=== PATIENT | female | born 1975 | race American Indian/Alaskan Native ===

== ENCOUNTER 2018-12-04 19:08 | Emergency (ER) | payer OTHER ==
[~2018-12-04] VITALS: Ht 154.9 cm; Wt 59.0 kg
[2018-12-04] MEDS ORDERED: METH40 PO (19:53)
[2018-12-04] MEDS ORDERED: ALBU90OI6 INH (19:54)
[2018-12-04] MEDS ORDERED: Prednisone20 MG PO (20:51)
== END 2018-12-04 21:10 | disposition home or self-care (01) ==
LOC: ER 19:08
DX: J45.901 Unspecified asthma with (acute) exacerbation (principal); Z88.8 Allergy status to other drugs, medicaments and biological substances; Z79.899 Other long term (current) drug therapy; F17.200 Nicotine dependence, unspecified, uncomplicated
CPT/HCPCS: 94640; 94760; 99283-25; J1100

== ENCOUNTER 2020-05-15 10:16 | Inpatient (IN) | payer OTHER ==
[~2020-05-15] VITALS: Ht 154.9 cm; Wt 50.7 kg
[~2020-05-15 10:16] MED LIST: ALBU90OI6 INH; CEPH500 PO; CHLO25 PO; METH40 PO; Prednisone20 MG PO
[2020-05-15 11:46] LABS: BASOPHILS ABSOLUTE AUTO 0.05 K/mm3 (0.00-0.23); BASOPHILS PERCENT AUTO 1 % (0-2); EOSINOPHILS ABSOLUTE AUTO 0.06 K/mm3 (0.00-0.68); EOSINOPHILS PERCENT AUTO 1 % (0-6); Hematocrit 33.3 % (33.0-51.0); Hemoglobin 10.6 g/dL (11.5-16.0); IMMATURE GRAN ABSOLUTE AUTO 0.03 K/mm3 (0.00-0.10); IMMATURE GRAN PERCENT AUTO 0 % (0-1); LYMPHOCYTES ABSOLUTE AUTO 1.33 K/mm3 (0.84-5.20); LYMPHOCYTES PERCENT AUTO 19 % (21-46); MONOCYTES ABSOLUTE AUTO 0.54 K/mm3 (0.16-1.47); MONOCYTES PERCENT AUTO 8 % (4-13); Mean Corpuscular HGB 32.4 pg (26.0-34.0); Mean Corpuscular HGB Conc 31.8 g/dL (31.5-36.5); Mean Corpuscular Volume 102 fL (80-100); Mean Platelet Volume 8.5 fL (9.1-12.4); NEUTROPHILS PERCENT AUTO 72 % (41-73); Platelet Count 413 K/mm3 (150-400); RDW Coefficient Variation 18.9 % (11.7-14.2); RDW Standard Deviation 67.9 fL (35.1-46.3); Red Blood Cell Count 3.27 M/mm3 (3.80-5.20); White Blood Cell Count 7.11 K/mm3 (4.00-11.30)
[2020-05-15 12:09] LABS: Albumin, Blood 2.6 g/dL (3.4-5.0); Albumin/Globulin Ratio 0.6 (0.8-1.8); Bilirubin, Total 0.2 mg/dL (0.1-1.0); Bun/Creatinine Ratio 10.3 (12.0-20.0); C-REACTIVE PROTEIN, EXT RANGE 1.28 mg/dL (0.000-0.300); Calcium, Blood 8.2 mg/dL (8.5-10.1); Creatinine, Blood 1.16 mg/dL (0.40-1.00); Globulin, Blood 4.2 g/dL (2.2-4.0); Potassium, Blood 4.2 mmol/L (3.5-5.5); Total Protein, Blood 6.8 g/dL (6.4-8.2)
[2020-05-15] MEDS ORDERED: SULTRIDS PO (13:51)
[2020-05-16 04:00] LABS: BASOPHILS ABSOLUTE AUTO 0.02 K/mm3 (0.00-0.23); BASOPHILS PERCENT AUTO 0 % (0-2); EOSINOPHILS ABSOLUTE AUTO 0.08 K/mm3 (0.00-0.68); EOSINOPHILS PERCENT AUTO 2 % (0-6); Hematocrit 29.3 % (33.0-51.0); Hemoglobin 9.3 g/dL (11.5-16.0); IMMATURE GRAN ABSOLUTE AUTO 0.02 K/mm3 (0.00-0.10); IMMATURE GRAN PERCENT AUTO 0 % (0-1); LYMPHOCYTES ABSOLUTE AUTO 1.08 K/mm3 (0.84-5.20); LYMPHOCYTES PERCENT AUTO 22 % (21-46); MONOCYTES ABSOLUTE AUTO 0.38 K/mm3 (0.16-1.47); MONOCYTES PERCENT AUTO 8 % (4-13); Mean Corpuscular HGB Conc 31.7 g/dL (31.5-36.5); Mean Corpuscular Volume 101 fL (80-100); Mean Platelet Volume 8.7 fL (9.1-12.4); NEUTROPHILS ABSOLUTE AUTO 3.29 K/mm3 (1.96-9.15); NEUTROPHILS PERCENT AUTO 68 % (41-73); Platelet Count 345 K/mm3 (150-400); RDW Coefficient Variation 18.6 % (11.7-14.2); RDW Standard Deviation 67.2 fL (35.1-46.3); Red Blood Cell Count 2.91 M/mm3 (3.80-5.20); White Blood Cell Count 4.87 K/mm3 (4.00-11.30)
[2020-05-16 04:20] LABS: Anion Gap 1 mmol/L (6-16); Blood Urea Nitrogen 14 mg/dL (8-24); Bun/Creatinine Ratio 13.3 (12.0-20.0); CO2, Blood 28 mmol/L (21-32); Calcium, Blood 7.6 mg/dL (8.5-10.1); Chloride, Blood 112 mmol/L (98-108); Creatinine, Blood 1.05 mg/dL (0.40-1.00); Glomerular Filtration Rate >60 (60-); Glucose, Blood 89 mg/dL (70-99); Potassium, Blood 4.7 mmol/L (3.5-5.5); Sodium, Blood 141 mmol/L (136-145)
--- NOTE | 2020-05-16 04:51 | NUR ---
PATIENT TRANSFERRED FROM THE ED. ALERT AND ORIENTED X 4. LEG WOUND BANDAGED. DRESING IS DRY AND INTACT. PATIENT IS WILLING TO USE NICOTINE AN ALTERNATIVE TO GOING OUTSIDE AND SMOKING A CIGARETTE. SHE IS NEEDING SEVERAL DOSES OF FENTANYL TO ALLEVIATE PAIN. KEPT NPO FOR CONSIDERATION OF SURGERY TOMORROW. FLUIDS RUNNING PER PROVIDER ORDER. CALL LIGHT WITHIN REACH, WILL MONITOR UNTIL END OF SHIFT
--- NOTE | 2020-05-16 10:09 | NUR ---
PT AGITATED, STATES SHE IS UPSET AT HAVING TO WAIT SO LONG FOR THE DOCTOR THIS MORNING. sTATES FENTANYL DOESN'T WORK FOR HER; STATES THAT IT MADE HER VOMIT THIS MORNING. STATES THAT DILAUDID IS WHAT WORKS FOR HER. REFUSED NICOTINE PATCH, STATES THAT IT DOESN'T WORK. AGITATED BECAUSE SHE CANNOT GO OUTSIDE TO SMOKE, EITHER.
--- NOTE | 2020-05-16 10:21 | NUR ---
Spoke with Dr. Akins to confirm receipt of consultation request. States that he is on his way to the hospital and will see the pt soon. Also attempted to reach Dr. Trujillo by phone, but there was no answer. Now Dr. Trujillo is in the unit, and rounding on her patients. Will address pt's concerns and request for different pain medication when the doctor rounds in PCU 1
--- NOTE | 2020-05-16 10:31 | NUR ---
Dr. Trujillo states she will change the pain medication from fentanyl to dilaudid. the pt remains agitated. She attempted OOB independently, agitated and pulling on her IV pole, which nearly knocked the IV pole over, and nearly also dislodged her IV. the PCT was just outside the room and requested that the pt call on her call light in order to prevent accidents/mishaps if she is needing help for activity. The pt is pulling on her IV, still agitated.
--- NOTE | 2020-05-16 10:41 | NUR ---
Dr. Akins and his information assistant are here to see the patient at this time.
--- NOTE | 2020-05-16 12:16 | NUR ---
pt is apologetic for previous agitation and demanding behaviours. She has received pain medication and is feeling much more comfortable. She is pleasantly conversant, tolerating clear liquids at this time.
--- NOTE | 2020-05-16 14:45 | NUR ---
PT STATES THAT FENTANYL CAUSES HER NAUSEA, AND DOESN'T WORK FOR PAIN RELIEF.
--- NOTE | 2020-05-16 15:49 | NUR ---
surgery has been delayed until around 5 pm. The pt appears to be comfortable, she is lying in bed, talking on the phone. She asked if someone could pray with her, and we accomodated her request; she expressed thanks for this immediately afterwards.
--- NOTE | 2020-05-16 16:25 | NUR ---
PT APPEARS AGITATED AGAIN. I explained that the surgery should be around 5 pm, as the surgeon is still in a very long case this afternoon. She is sullen and does not answer me. AFter I left the room, the PCT alerted me that the patient is c/o of pain. She is medicated for pain as ordered at this time.
--- NOTE | 2020-05-16 17:03 | NUR ---
the pt has a visitor at the bedside, an adult male, who is on his phone and does not look up while I am in the room. The day surgery RN Javi is here at this time to take the patient for surgery.
--- NOTE | 2020-05-16 17:13 | NUR ---
BROUGHT TO [facility] ADMISSION TO UNIT STARTED PATIENT UP TO BATHROOM
--- NOTE | 2020-05-16 17:25 | NUR ---
Telephone report was given to Jaquelin Mccurdy. Anticipate pt transfer to surgical floor following surgery today.
--- NOTE | 2020-05-16 19:17 | NUR ---
05/16/201916 [place] LATE ENTRY: BLACK LOOSE STOOL NOTED WHEN PATIENT MOVED FROM OR TABLE TO [facility]. ELIZABETH AUGUST, ROSIBEL AUGUST, DR. ARMAS AND DR. GARCIA NOTIFIED.
--- NOTE | 2020-05-16 21:11 | NUR ---
PATIENT CAME UP FROM POST-OP WITH SYSTOLIC BLOOD PRESSURE <90. BLACK TARRY STOOL NOTED ON BED SHEETS. PATIENT WAS CLEANED AND FLUID BOLUS ORDERED AND INITIATED. AT BEDSIDE INFORMED THE PATIENT OF HER NEED FOR MEDICAL TREATMENT FOR GI BLEED AND HYPOTENSION. PATIENT REQUESTED TO SMOKE OUTSIDE BUT WAS ADVISED AGAINST DOING SO WE WORKED HER UP FOR GI BLEED. PATIENT WAS FOUND WITH CIGARETTES IN HAND AND WAS INSTRUCTED TO GIVE THEM UP. SHE REFUSED AND I INFORMED HER THAT IT WAS AGAINST POLICY. SHE STATED THAT IF HER CIGARETTES WERE GOING TO GET CONFISCATED THAT SHE WOULD LEAVE. SHE HID CIGARETTES AND AFTER I LEFT ROOM TO CALL SECURITY SHE RAN DOWN THE AMBRIZ WITH HER BELONGINGS IN HAND. IV AND TELEMETRY BOX WAS LEFT ON THE FLOOR. SECURITY INFORMED AND ON THE LOOKOUT
[2020-05-17] MEDS ORDERED: GABA300 PO (10:27)
[2020-05-17] MEDS ORDERED: Cymbalta20 MG (10:28)
== END 2020-05-16 20:30 | disposition left against medical advice (07) | DRG 580 ==
LOC: ER 10:16 → PCU 18:14
PROVIDERS: Emergency Medicine; Hospitalist; Orthopaedic Surgery; ADMIT Internal Medicine
PROC: 0QDG0ZZ Extraction of Right Tibia, Open Approach (ICD-10-PCS; principal; 2020-05-16 16:15)
DX: L03.115 Cellulitis of right lower limb (principal); N17.9 Acute kidney failure, unspecified; K92.1 Melena; S81.811A Laceration without foreign body, right lower leg, initial encounter; F17.210 Nicotine dependence, cigarettes, uncomplicated; Z20.828 Contact with and (suspected) exposure to other viral communicable diseases; I95.9 Hypotension, unspecified; F10.11 Alcohol abuse, in remission; F43.10 Post-traumatic stress disorder, unspecified; F60.3 Borderline personality disorder; F15.21 Other stimulant dependence, in remission; F11.21 Opioid dependence, in remission; W01.198A Fall on same level from slipping, tripping and stumbling with subsequent striking against other object, initial encounter; Z79.899 Other long term (current) drug therapy
CPT/HCPCS: 36415; 73590; 73701; 80048; 80053; 82550; 85014; 85018; 85025; 85651; 86140; 87040; 87070; 87075; 87077; 87186; 87205; 96365-59; 96375-59; 99285-25; J1100; J1170; J1650; J1885; J2060; J2250; J2370; J2405; J2543; J2704; J3010; J3370; J7030; J7120; Q9967; U0002

== ENCOUNTER 2020-05-17 05:05 | Inpatient (IN) | payer OTHER ==
[~2020-05-17] VITALS: Ht 154.9 cm; Wt 59.2 kg
[~2020-05-17 05:05] MED LIST changes: +SULTRIDS PO
[2020-05-17 07:26] LABS: BASOPHILS PERCENT AUTO 0 % (0-2); EOSINOPHILS PERCENT AUTO 0 % (0-6); Hematocrit 21.2 % (33.0-51.0); Hemoglobin 6.6 g/dL (11.5-16.0); IMMATURE GRAN ABSOLUTE AUTO 0.03 K/mm3 (0.00-0.10); IMMATURE GRAN PERCENT AUTO 0 % (0-1); LYMPHOCYTES ABSOLUTE AUTO 0.95 K/mm3 (0.84-5.20); LYMPHOCYTES PERCENT AUTO 11 % (21-46); MONOCYTES ABSOLUTE AUTO 0.27 K/mm3 (0.16-1.47); MONOCYTES PERCENT AUTO 3 % (4-13); Mean Corpuscular HGB 31.6 pg (26.0-34.0); Mean Corpuscular HGB Conc 31.1 g/dL (31.5-36.5); Mean Corpuscular Volume 101 fL (80-100); NEUTROPHILS ABSOLUTE AUTO 7.15 K/mm3 (1.96-9.15); NEUTROPHILS PERCENT AUTO 85 % (41-73); Platelet Count 330 K/mm3 (150-400); RDW Coefficient Variation 18.4 % (11.7-14.2); RDW Standard Deviation 66.5 fL (35.1-46.3); Red Blood Cell Count 2.09 M/mm3 (3.80-5.20)
[2020-05-17 07:53] LABS: Alanine Aminotransfer (ALT/SGP 222 U/L (12-78); Albumin, Blood 2.4 g/dL (3.4-5.0); Albumin/Globulin Ratio 0.7 (0.8-1.8); Alk Phos 117 U/L (50-136); Anion Gap 5 mmol/L (6-16); Aspartate Aminotrans (AST/SGOT 787 U/L (12-37); Bilirubin, Total 0.3 mg/dL (0.1-1.0); Blood Urea Nitrogen 36 mg/dL (8-24); Bun/Creatinine Ratio 27.3 (12.0-20.0); CO2, Blood 25 mmol/L (21-32); Calcium, Blood 8.1 mg/dL (8.5-10.1); Chloride, Blood 114 mmol/L (98-108); Creatinine, Blood 1.32 mg/dL (0.40-1.00); Ethanol (Alcohol), Blood, Med <3 mg/dL; Globulin, Blood 3.5 g/dL (2.2-4.0); Glomerular Filtration Rate 46 (60-); Glucose, Blood 92 mg/dL (70-99); Potassium, Blood 4.9 mmol/L (3.5-5.5); Sodium, Blood 144 mmol/L (136-145); Total Protein, Blood 5.9 g/dL (6.4-8.2)
[2020-05-17 09:05] LABS: International Normalized Ratio 1.02; Prothrombin Time Results 10.9 Sec (9.7-11.5)
[2020-05-17] MEDS ORDERED: GABA300 PO (10:27)
[2020-05-17] MEDS ORDERED: Cymbalta20 MG (10:28)
--- NOTE | 2020-05-17 16:28 | NUR ---
The pt was asking what was going on. I explained to her about her blood transfusions, medications, and lab work. She seems dazed. States that her boyfriend Dontrell was in here to see her. She seems also to have limited understanding of what is going on, despite earlier and present attempts to explain things to her. Dr Gates here to see the patient; She refuses the endoscopy. We have been unable to obtain the urine sample due to repeated contamination with stool.
--- NOTE | 2020-05-17 17:39 | NUR ---
PCU ADMIT AND ELOPEMENT NOTE PATIENT ARRIVED TO UNIT VIA GURNEY - AMBUALTED OVER TO UNIT BED WITH STEADY GAIT. VSS. PATIENT HAVE LARGE DARK GREEN TO BLACK LIQUID COFFEE GROUND STOOL. RESP E/U ON ROOM AIR. LARGE WOUND NOTED WITH SOME SUTURES ON RIGHT CALF - PICTURES IN CHART. PATIENT LABILE EMOTIONALLY. PATIENT HAD A VISITOR IN ROOM - PATIENT STARTED ACTING CONFUSED AND UNDIRECTABLE AFTER VISITOR LEFT. CONCERN PATIENT TOOK SUBSTANCE FROM VISITOR. THIS RN NOTED SOMETHING BLACK IN PATIENTS MOUTH - WHEN ASKED PATIENT ABOUT IT SHE CLOSED HER MOUTH MOVED HER TONGUE AND THEN OPENED HER MOUTH - NO SUBTANCE WAS NOTED. PATIENT LEFT IN - PULLING ONE OF HER TWO IV'S. PATIENT EDUCATED THAT IF SHE LEFT SHE COULD . PATIENT LEFT UNIT - TECHNICAL MANAGER [employer] WENT TO SEARCH FOR PATIENT T/O HOSPITAL TO REMOVE SECOND IV - UNABLE TO LOCATE. PATIENT ALSO REMOVED TELE. PATIENT ELOPED.
[2020-05-18 07:09] LABS: HBSAG SCREEN Negative (Negative); HEP A AB, IGM Negative (Negative); HEP B CORE AB, IGM Negative (Negative); HEP C VIRUS AB <0.1 (0.0-0.9)
[2020-05-18 08:10] LABS: HBSAG SCREEN Negative (Negative); HEP B CORE AB, TOT Negative (Negative); HEP C VIRUS AB <0.1 (0.0-0.9)
== END 2020-05-17 18:03 | disposition left against medical advice (07) | DRG 604 ==
LOC: ER 05:05 → ERHOLD 06:34 → PCU 06:34
PROVIDERS: Emergency Medicine; Nurse Practitioner Acute Care; ADMIT Internal Medicine
PROC: 30233N1 Transfusion of Nonautologous Red Blood Cells into Peripheral Vein, Percutaneous Approach (ICD-10-PCS; principal; 2020-05-17)
DX: S81.811A Laceration without foreign body, right lower leg, initial encounter (principal); K72.00 Acute and subacute hepatic failure without coma; N17.9 Acute kidney failure, unspecified; D62 Acute posthemorrhagic anemia; L03.115 Cellulitis of right lower limb; L02.415 Cutaneous abscess of right lower limb; K91.840 Postprocedural hemorrhage of a digestive system organ or structure following a digestive system procedure; F17.210 Nicotine dependence, cigarettes, uncomplicated; M79.7 Fibromyalgia; F43.10 Post-traumatic stress disorder, unspecified; F60.3 Borderline personality disorder; F10.10 Alcohol abuse, uncomplicated; Y90.0 Blood alcohol level of less than 20 mg/100 ml; Z53.29 Procedure and treatment not carried out because of patient's decision for other reasons; Y92.9 Unspecified place or not applicable; R74.0 Nonspecific elevation of levels of transaminase and lactic acid dehydrogenase [LDH]; I95.9 Hypotension, unspecified; W18.30XA Fall on same level, unspecified, initial encounter; Y93.9 Activity, unspecified
CPT/HCPCS: 36415; 36430; 76700; 80053; 80074; 83690; 83735; 85025; 85610; 86317; 86704; 86708; 86803; 86850; 86900; 86901; 86920; 87340; 93975; 99284; C9113; G0480; J0696; J1170; J2543; J3370; J7030; P9016

== ENCOUNTER 2020-05-22 09:57 | Emergency (ER) | payer OTHER ==
[~2020-05-22] VITALS: Ht 154.9 cm; Wt 56.7 kg
[~2020-05-22 09:57] MED LIST changes: +Cymbalta20 MG; +GABA300 PO
[2020-05-22 10:53] LABS: BASOPHILS ABSOLUTE AUTO 0.09 K/mm3 (0.00-0.23); BASOPHILS PERCENT AUTO 1 % (0-2); EOSINOPHILS ABSOLUTE AUTO 0.21 K/mm3 (0.00-0.68); EOSINOPHILS PERCENT AUTO 2 % (0-6); Hematocrit 34.4 % (33.0-51.0); Hemoglobin 10.9 g/dL (11.5-16.0); IMMATURE GRAN ABSOLUTE AUTO 0.05 K/mm3 (0.00-0.10); IMMATURE GRAN PERCENT AUTO 1 % (0-1); LYMPHOCYTES ABSOLUTE AUTO 1.26 K/mm3 (0.84-5.20); LYMPHOCYTES PERCENT AUTO 14 % (21-46); MONOCYTES ABSOLUTE AUTO 0.79 K/mm3 (0.16-1.47); MONOCYTES PERCENT AUTO 9 % (4-13); Mean Corpuscular HGB 31.9 pg (26.0-34.0); Mean Corpuscular HGB Conc 31.7 g/dL (31.5-36.5); Mean Corpuscular Volume 101 fL (80-100); Mean Platelet Volume 8.8 fL (9.1-12.4); NEUTROPHILS ABSOLUTE AUTO 6.58 K/mm3 (1.96-9.15); NEUTROPHILS PERCENT AUTO 73 % (41-73); Platelet Count 685 K/mm3 (150-400); RDW Coefficient Variation 18.6 % (11.7-14.2); RDW Standard Deviation 62.6 fL (35.1-46.3); Red Blood Cell Count 3.42 M/mm3 (3.80-5.20); White Blood Cell Count 8.98 K/mm3 (4.00-11.30)
[2020-05-22 11:11] LABS: Alanine Aminotransfer (ALT/SGP 69 U/L (12-78); Albumin, Blood 2.6 g/dL (3.4-5.0); Albumin/Globulin Ratio 0.6 (0.8-1.8); Alk Phos 162 U/L (50-136); Anion Gap 6 mmol/L (6-16); Aspartate Aminotrans (AST/SGOT 38 U/L (12-37); Bilirubin, Total 0.2 mg/dL (0.1-1.0); Blood Urea Nitrogen 4 mg/dL (8-24); Bun/Creatinine Ratio 4.1 (12.0-20.0); CO2, Blood 27 mmol/L (21-32); Calcium, Blood 8.4 mg/dL (8.5-10.1); Chloride, Blood 116 mmol/L (98-108); Creatinine, Blood 0.97 mg/dL (0.40-1.00); Globulin, Blood 4.3 g/dL (2.2-4.0); Glomerular Filtration Rate >60 (60-); Glucose, Blood 66 mg/dL (70-99); Potassium, Blood 3.3 mmol/L (3.5-5.5); Sodium, Blood 149 mmol/L (136-145); Total Protein, Blood 6.9 g/dL (6.4-8.2)
[2020-05-22] MEDS ORDERED: Hair, Skin & N1 EACH PO (12:33)
[2020-05-22] MEDS ORDERED: CHLO25 PO (12:33)
[2020-05-22] MEDS ORDERED: Norco 5-325 Ta1 EACH PO (12:33)
== END 2020-05-22 12:54 | disposition home or self-care (01) ==
LOC: ER 09:57
PROVIDERS: Physician Assistant
DX: Z48.817 Encounter for surgical aftercare following surgery on the skin and subcutaneous tissue (principal); E87.0 Hyperosmolality and hypernatremia; Z88.8 Allergy status to other drugs, medicaments and biological substances; Z79.899 Other long term (current) drug therapy; J45.909 Unspecified asthma, uncomplicated; F17.210 Nicotine dependence, cigarettes, uncomplicated; Z86.59 Personal history of other mental and behavioral disorders
CPT/HCPCS: 36415; 80053; 82947; 83605; 85025; 96365; 96375; 99283-25; A9270-GY; J1170; J3370

== ENCOUNTER 2020-05-31 11:25 | Emergency (ER) | payer OTHER ==
[~2020-05-31] VITALS: Ht 154.9 cm; Wt 56.7 kg
[~2020-05-31 11:25] MED LIST changes: +Hair, Skin & N1 EACH PO; +Norco 5-325 Ta1 EACH PO
[2020-05-31] MEDS ORDERED: SULTRIDS PO (12:45)
== END 2020-05-31 13:00 | disposition home or self-care (01) ==
LOC: ER 11:25
DX: T81.49XA Infection following a procedure, other surgical site, initial encounter (principal); L03.115 Cellulitis of right lower limb; F43.10 Post-traumatic stress disorder, unspecified; F60.3 Borderline personality disorder; F17.210 Nicotine dependence, cigarettes, uncomplicated; Z88.8 Allergy status to other drugs, medicaments and biological substances; Z79.899 Other long term (current) drug therapy
CPT/HCPCS: 99283; A9270-GY